=== PATIENT | female | born 1985 | race Two or more races ===

== ENCOUNTER 2023-05-16 10:58 | Emergency (ER) | payer OTHER ==
[2023-05-16 11:05] VITALS: BP 96/51; PULSE 90; RESP 18; TEMP 98; BMI 45.3
[2023-05-16] MEDS ORDERED: ALBUTEROL SO4 2.5/IPRATROPIUM 0.5 INH SOL 3 ML VIAL.NEB. NEB ONE ×3 (11:17→11:19)
[2023-05-16] MEDS ORDERED: DEXAMETHASONE SOD PHOSPHATE 10 MG/1 ML VIAL IM ONE (11:22)
[2023-05-16] MEDS ORDERED: DEXAMETHASONE SOD PHOSPHATE 10 MG/1 ML VIAL ONE (11:23)
== END 2023-05-16 13:19 | disposition home or self-care (01) ==
LOC: JER 10:58
PROC: 3E023GC Introduction of Other Therapeutic Substance into Muscle, Percutaneous Approach (ICD-10-PCS; principal; 2023-05-16)
PROC: 3E0F7GC Introduction of Other Therapeutic Substance into Respiratory Tract, Via Natural or Artificial Opening (ICD-10-PCS; 2023-05-16)
DX: R06.02 Shortness of breath (principal); R05.9 Cough, unspecified; R07.89 Other chest pain; J45.901 Unspecified asthma with (acute) exacerbation
CPT/HCPCS: 71046-TC-FY; 99284-25; J1100

== ENCOUNTER 2023-05-20 09:55 | Emergency (ER) | payer OTHER ==
[2023-05-20 10:02] VITALS: BP 115/66; PULSE 83; RESP 18; TEMP 98.1; BMI 39.6
[2023-05-20] MEDS ORDERED: predniSONE 20 MG TABLET (UD) PO ONE (10:18)
[2023-05-20] MEDS: ALBUTEROL SO4 2.5/IPRATROPIUM 0.5 INH SOL 3 ML VIAL.NEB. NEB SCH ×4 (10:45→11:30)
[2023-05-20] MEDS ORDERED: predniSONE 20 MG TABLET (UD) ONE (10:47)
[2023-05-20] MEDS ORDERED: ALBUTEROL SO4 2.5/IPRATROPIUM 0.5 INH SOL 3 ML VIAL.NEB. NEB ONE (10:47)
[2023-05-20] MEDS ORDERED: ALBUTEROL SULFATE 0.021% (0.63 MG/3 ML) VIAL.NEB NEB ONE (11:36)
[2023-05-20] MEDS ORDERED: ALBUTEROL SO4 0.083% IH SOL 2.5 MG/3 ML VIAL.NEB. NEB ONE (11:53)
== END 2023-05-20 12:37 | disposition home or self-care (01) ==
LOC: JER 09:55
PROC: 3E0F7GC Introduction of Other Therapeutic Substance into Respiratory Tract, Via Natural or Artificial Opening (ICD-10-PCS; principal; 2023-05-20)
PROC: 3E0F7GC Introduction of Other Therapeutic Substance into Respiratory Tract, Via Natural or Artificial Opening (ICD-10-PCS; 2023-05-20)
DX: R05.9 Cough, unspecified (principal); J45.21 Mild intermittent asthma with (acute) exacerbation
CPT/HCPCS: 99284-25

== ENCOUNTER 2023-05-31 16:11 | Emergency (ER) | payer OTHER ==
[2023-05-31 16:31] VITALS: RESP 18; BMI 43.4
[2023-05-31] MEDS ORDERED: ALBUTEROL SO4 2.5/IPRATROPIUM 0.5 INH SOL 3 ML VIAL.NEB. NEB ONE ×3 (17:47→17:58)
[2023-05-31] MEDS ORDERED: ACETAMINOPHEN 325 MG TABLET (FP) PO ONE (18:18)
[2023-05-31] MEDS ORDERED: SODIUM CHLORIDE 0.9% 500 ML INFUS.BAG IV ONE (19:02)
[2023-05-31 20:18] VITALS: BP 119/72; PULSE 78; TEMP 98
[2023-05-31 20:25] LABS: BASO % 0.6 % (0-2.0); EOS % 1.3 % (0-4.5); HEMATOCRIT 42.7 % (32.4-45.2); HEMOGLOBIN 14.5 GM/dL (10.7-15.3); MCH 30.4 pg (25.7-33.7); MEAN CELL VOLUME 89.4 fl (80-96); MEAN PLT VOLUME 10.9 fl (7.5-11.1); MONO % 3.9 % (3.8-10.2); NEUT % 82.2 % (42.8-82.8); PLATELET COUNT 250 10^3/uL (134-434); RBC 4.78 M/mm3 (3.60-5.2); RDW 14.9 % (11.6-15.6); WHITE BLOOD COUNT 14.2 K/mm3 (4.0-10.0)
[2023-05-31 20:41] LABS: POTASSIUM 4.1 mmol/L (3.5-5.1)
[2023-05-31 20:44] LABS: ALBUMIN 4.3 g/dl (3.4-5.0); BLOOD UREA NITROGEN 14.2 mg/dL (7-18); CALCIUM 9.6 mg/dL (8.5-10.1)
[2023-05-31 20:48] LABS: BILIRUBIN,TOTAL 0.3 mg/dL (0.2-1); CREATININE 0.9 mg/dL (0.55-1.3)
[2023-05-31 20:49] LABS: TOT PROT 8.1 g/dl (6.4-8.2)
[2023-05-31] MEDS ORDERED: AZITHROMYCIN 250 MG TABLET PO ONE (21:14)
[2023-05-31] MEDS ORDERED: AZITHROMYCIN 500 MG TABLET ONE (21:24)
== END 2023-05-31 21:32 | disposition home or self-care (01) ==
LOC: JER 16:11
PROC: 3E0F7GC Introduction of Other Therapeutic Substance into Respiratory Tract, Via Natural or Artificial Opening (ICD-10-PCS; principal; 2023-05-31)
DX: R06.02 Shortness of breath (principal); R05.9 Cough, unspecified; Z20.822 Contact with and (suspected) exposure to COVID-19
CPT/HCPCS: 0241U-QW; 36415; 71046-TC-FY; 80053; 84484; 85025; 93005; 93010; 99285-25

== ENCOUNTER 2024-03-12 21:58 | Emergency (ER) | payer OTHER ==
[2024-03-12 22:13] VITALS: BP 126/69; PULSE 85; RESP 20; TEMP 99.7; BMI 44.4
[2024-03-12] MEDS ORDERED: DEXAMETHASONE SOD PHOSPHATE 10 MG/1 ML VIAL ONE (22:47)
[2024-03-12] MEDS ORDERED: ALBUTEROL SO4 2.5/IPRATROPIUM 0.5 INH SOL 3 ML VIAL.NEB. NEB ONE (22:47)
[2024-03-12] MEDS ORDERED: ACETAMINOPHEN 500 MG TABLET (FP) ONE (22:47)
[2024-03-12] MEDS: ACETAMINOPHEN 500 MG TABLET (FP) PO ONE (22:57)
[2024-03-12] MEDS: DEXAMETHASONE LIQUID 0.5 MG/5 ML PO ONE (22:57)
[2024-03-12] MEDS: ALBUTEROL SO4 2.5/IPRATROPIUM 0.5 INH SOL 3 ML VIAL.NEB. NEB ONE (22:57)
[2024-03-12 23:21] LABS: THROAT:GRP A STREP NOT DETECTED (NOTDETECTED)
[2024-03-12 23:54] LABS: HIV INTERPRETATION NEGATIVE (NEGATIVE)
== END 2024-03-13 00:10 | disposition home or self-care (01) ==
LOC: JERFT 21:58
PROC: 3E0F7GC Introduction of Other Therapeutic Substance into Respiratory Tract, Via Natural or Artificial Opening (ICD-10-PCS; principal; 2024-03-12)
DX: R05.9 Cough, unspecified (principal); J02.9 Acute pharyngitis, unspecified; J45.901 Unspecified asthma with (acute) exacerbation; B34.9 Viral infection, unspecified; R50.9 Fever, unspecified; M79.10 Myalgia, unspecified site; R61 Generalized hyperhidrosis; R51.9 Headache, unspecified; Z20.822 Contact with and (suspected) exposure to COVID-19
CPT/HCPCS: 0241U-QW; 36415; 71046-TC-FY; 84703; 86803; 87389; 87651; 99284-25

== ENCOUNTER 2024-10-13 14:32 | Emergency (ER) | payer OTHER ==
[2024-10-13 14:47] VITALS: BMI 43.0
[2024-10-13] MEDS ORDERED: ONDANSETRON 4 MG/2 ML VIAL ONE (15:41)
[2024-10-13] MEDS ORDERED: ACETAMINOPHEN INJECTION 100 ML ONE (15:41)
[2024-10-13] MEDS: ACETAMINOPHEN 1000 MG/100 ML BAG IVPB ONE (15:50)
[2024-10-13] MEDS: ONDANSETRON 4 MG/2 ML VIAL IVPUSH ONE (15:50)
[2024-10-13 17:05] VITALS: TEMP 98.3
[2024-10-13 17:22] LABS: ABSOLUTE IMMATURE GRANULOCYTES 0.01 x10^3/uL (0.0-0.031); BASOPHILS # 0.04 x10^3/uL (0.01-0.08); EOSINOPHIL % 1.3 % (0.7-5.8); EOSINOPHILS # 0.11 x10^3/uL (0.04-0.36); HEMATOCRIT 40.1 % (34.1-44.9); HEMOGLOBIN 13.2 g/dL (11.2-15.7); MCHC 32.9 g/dl (32.2-35.5); MEAN CELL VOLUME 87.9 fl (79.4-94.8); MEAN PLT VOLUME 12.1 fl (9.4-12.3); MONOCYTE # 0.48 x10^3/uL (0.24-0.86); MONOCYTE % 5.6 % (4.7-12.5); PLATELET COUNT 217 x10^3/uL (182-369); RDW 13.4 % (12.1-16.8)
[2024-10-13 17:31] LABS: INR 1.08 (0.83-1.09); PROTHROMBIN TIME (PATIENT) 11.8 SEC (9.7-13.0)
[2024-10-13 17:34] LABS: ACTIVATED PTT 31.7 SECONDS (25.2-36.5)
[2024-10-13 17:47] LABS: CHLORIDE 107 mmol/L (98-107); POTASSIUM 4.1 mmol/L (3.5-5.1); SODIUM 139 mmol/L (136-145)
[2024-10-13 17:50] LABS: ALBUMIN 4.1 g/dl (3.4-5.0); ANION GAP 8 mmol/L (4-13); BLOOD UREA NITROGEN 10.9 mg/dL (7-18); CALCIUM 9.4 mg/dL (8.5-10.1); CO2 24 mmol/L (21-32); GLUCOSE,RANDOM 79 mg/dL (74-106); MAGNESIUM 2.1 mg/dL (1.8-2.4)
[2024-10-13 17:53] LABS: CREATININE 0.8 mg/dL (0.55-1.3); PHOSPHOROUS 3.1 mg/dL (2.5-4.9); SGOT/AST 13 U/L (15-37); SGPT/ALT 23 U/L (13-61)
[2024-10-13 17:54] LABS: BILIRUBIN,TOTAL 0.4 mg/dL (0.2-1); TOT PROT 7.4 g/dl (6.4-8.2)
[2024-10-13 17:56] LABS: ALK PHOS 71 U/L (45-117)
[2024-10-13 20:12] VITALS: BP 121/89; PULSE 81; RESP 18
== END 2024-10-13 20:12 | disposition home or self-care (01) ==
LOC: JER 14:32
PROC: 3E033NZ Introduction of Analgesics, Hypnotics, Sedatives into Peripheral Vein, Percutaneous Approach (ICD-10-PCS; principal; 2024-10-13)
PROC: 3E033GC Introduction of Other Therapeutic Substance into Peripheral Vein, Percutaneous Approach (ICD-10-PCS; 2024-10-13)
DX: R10.31 Right lower quadrant pain (principal); M25.551 Pain in right hip; M79.89 Other specified soft tissue disorders; R11.0 Nausea; R20.2 Paresthesia of skin
CPT/HCPCS: 36415; 74177-TC; 76830-TC; 80053; 83690; 83735; 84100; 84702; 85025; 85610; 85730; 93005; 93010; 93970-TC; 99285-25; J0131; Q9967